=== PATIENT | male | born 1980 | race Caucasian/White ===

== ENCOUNTER 2021-06-23 08:02 | Day surgery (SDC) | payer OTHER, SELFPAY ==
[~2021-06-23] VITALS: Ht 172.7 cm; Wt 74.8 kg
[2021-06-23] MEDS ORDERED: diphenhydrAMINE 50 MG/ML VIAL ONE (10:13)
[2021-06-23] MEDS ORDERED: fentaNYL citrate 0.05 MG/ML VIAL ONE (10:13)
[2021-06-23] MEDS ORDERED: MIDAZOLAM 5 MG/5 ML VIAL ONE (10:14)
[2021-06-23] MEDS ORDERED: MIDAZOLAM 2 MG/2 ML VIAL IVP ONE (11:35)
[2021-06-23] MEDS ORDERED: fentaNYL citrate 0.05 MG/ML VIAL IVP ONE (11:35)
== END 2021-06-23 11:40 | disposition home or self-care (01) ==
LOC: MOR 08:02 → MMU 08:03 → MOR 11:40
PROVIDERS: ATTEND Internal Medicine Gastroenterology
DX: Z12.11 Encounter for screening for malignant neoplasm of colon (principal); K92.0 Hematemesis; K44.9 Diaphragmatic hernia without obstruction or gangrene; K21.9 Gastro-esophageal reflux disease without esophagitis; Z80.0 Family history of malignant neoplasm of digestive organs; Z87.891 Personal history of nicotine dependence; Z79.899 Other long term (current) drug therapy
CPT/HCPCS: 43239; 45378; 87426; J2250; J3010; J1200